=== PATIENT | female | born 2000 | race Caucasian/White ===

== ENCOUNTER 2021-03-25 12:59 | Outpatient (CLI) | payer OTHER ==
[~2021-03-25] VITALS: Ht 152.4 cm; Wt 49.9 kg
== END 2021-03-25 16:15 | disposition home or self-care (01) ==
LOC: GENOP 12:59
DX: O99.891 Other specified diseases and conditions complicating pregnancy (principal); R10.2 Pelvic and perineal pain; Z3A.28 28 weeks gestation of pregnancy
CPT/HCPCS: 81001; 82731; 96360; 96361; J7120

== ENCOUNTER 2021-06-18 16:46 | Inpatient (IN) | payer OTHER ==
[~2021-06-18] VITALS: Ht 152.4 cm; Wt 54.4 kg
[2021-06-18 18:05] LABS: HEMOGLOBIN 10.2 gm/dl (12.3-15.3); RED BLOOD COUNT 3.57 M/UL (4.00-5.10); WHITE BLOOD COUNT 6.8 K/UL (4.5-11.0)
[2021-06-19] MEDS ORDERED: DOCUSATE SODIU100 MG PO (16:55)
[2021-06-19] MEDS ORDERED: IBUPROFEN600 MG PO (16:55)
[2021-06-20 04:05] LABS: HEMOGLOBIN 8.4 gm/dl (12.3-15.3)
[2021-06-21] MEDS ORDERED: HYDROCODON-ACE1 EAC4 PO (08:50)
[2021-06-21] MEDS ORDERED: IRON325 M1 PO (08:56)
== END 2021-06-21 12:07 | disposition home or self-care (01) | DRG 807 ==
LOC: GENOP 16:46 → OB 17:02
PROVIDERS: Obstetrics & Gynecology; ADMIT Obstetrics & Gynecology
PROC: 10907ZC Drainage of Amniotic Fluid, Therapeutic from Products of Conception, Via Natural or Artificial Opening (ICD-10-PCS; principal; 2021-06-19)
PROC: 10D07Z6 Extraction of Products of Conception, Vacuum, Via Natural or Artificial Opening (ICD-10-PCS; 2021-06-19)
PROC: 3E033VJ Introduction of Other Hormone into Peripheral Vein, Percutaneous Approach (ICD-10-PCS; 2021-06-19)
PROC: 4A1H8CZ Monitoring of Products of Conception, Cardiac Rate, Via Natural or Artificial Opening Endoscopic (ICD-10-PCS; 2021-06-19)
PROC: 10H073Z Insertion of Monitoring Electrode into Products of Conception, Via Natural or Artificial Opening (ICD-10-PCS; 2021-06-19)
PROC: 0W8NXZZ Division of Female Perineum, External Approach (ICD-10-PCS; 2021-06-19)
PROC: 3E0234Z Introduction of Serum, Toxoid and Vaccine into Muscle, Percutaneous Approach (ICD-10-PCS; 2021-06-19)
DX: O99.02 Anemia complicating childbirth (principal); Z37.0 Single live birth; D64.9 Anemia, unspecified; O99.284 Endocrine, nutritional and metabolic diseases complicating childbirth; Z20.822 Contact with and (suspected) exposure to COVID-19; E07.9 Disorder of thyroid, unspecified; O26.853 Spotting complicating pregnancy, third trimester; H91.90 Unspecified hearing loss, unspecified ear; Z3A.39 39 weeks gestation of pregnancy; Z23 Encounter for immunization
CPT/HCPCS: 36415; 51702; 81001; 82800; 85014; 85018; 85025; 85461; 86850; 86900; 86901; 90715; 96372; J0595; J2590; J2790; J3010; J7120; U0002